=== PATIENT | male | born 1970 ===

== ENCOUNTER 2023-09-29 10:49 | Outpatient (CLI) | payer OTHER, SELFPAY ==
--- NOTE | 2023-09-29 10:55 | MR_ITS ---
WS: [id number] MRI CERVICAL SPINE NONCONTRAST TECHNIQUE: Sagittal T1, T2 and STIR imaging. Axial T2, gradient, and fiesta imaging. CLINICAL INFORMATION: CERVICAL RADICULPATHY L SIDE COMPARISON: None. FINDINGS: Straightening of the normal cervical lordosis. Cord signal is normal. No high-grade central canal marco antonio nosis. C2-C3: Mild facet arthropathy. Spinal canal and foramen are patent. C3-C4: Mild facet arthropathy. Mild RIGHT and no significant LEFT foraminal narrowing. Spinal canal i s patent. C4-C5: Mild LEFT and no significant RIGHT foraminal narrowing. Mild facet arthropathy. C5-C6: Moderate facet arthropathy. Mild LEFT and no significant RIGHT foraminal narrowing. Spinal can al is patent. C6-C7: Mild LEFT and no significant RIGHT foraminal narrowing. Moderate to advanced facet arthropathy . Spinal canal is patent. C7-T1: Mild LEFT and no significant RIGHT foraminal narrowing. Spinal canal is patent. Advanced facet arthropathy Visualized brain stem structures: Normal. Prevertebral soft tissues: Normal. MR/MR cervical spin wo con* [id number] IMPRESSION: 1. Straightening of the normal cervical lordosis. Cord signal is normal. 2. No significant central canal stenosis. 3. Mild LEFT bony foraminal narrowing more prominent LEFT C5-C6 and LEFT C6-C7 . 4. Moderate facet arthropathy C4-C5 and C5-C6 and C6-C7 worse at C6-C7 with mo derate to advanced facet arthropathy.
== END 2023-09-29 10:50 | disposition home or self-care (01) ==
LOC: RAD 10:50
PROVIDERS: PCP Family Medicine; Visit Provider Family Medicine
DX: M47.892 Other spondylosis, cervical region (principal); M46.94 Unspecified inflammatory spondylopathy, thoracic region
CPT/HCPCS: 72141

== ENCOUNTER → 2023-11-19 10:29 | Outpatient (BNVA) | payer OTHER, SELFPAY | PROVIDERS: PCP Family Medicine; Visit Provider Specialist | DX: R20.0 Anesthesia of skin (principal); R20.2 Paresthesia of skin; R29.898 Other symptoms and signs involving the musculoskeletal system; G56.22 Lesion of ulnar nerve, left upper limb | CPT/HCPCS: 95910 ==